=== PATIENT | male | born 1985 | race African-American/Black ===

== ENCOUNTER 2023-01-13 23:26 | Emergency (ER) | payer OTHER ==
[~2023-01-13] VITALS: Ht 198.1 cm; Wt 124.7 kg
[2023-01-13 23:43] VITALS: BP_SYST 152; PULSE 78; RESP 20; TEMP 98.3; O2SAT 99
--- NOTE | 2023-01-13 23:50 | NUR ---
Patient triaged and placed in waiting room. VSS and patient appears in no acute distress at this time. Accompanied by FRIEND, awaiting available bed, and MD notified of need for MSE.
--- NOTE | 2023-01-13 23:51 | NUR ---
Patient to ER bed 8 to gown for evaluation. Side rails up. Report given to ZEINA MATUTE.
--- NOTE | 2023-01-14 00:07 | NUR ---
pt bib partner from home. c/o L side pain. Pt states urine frequancy but denies pain and burning upon urination. Pt states pain 2/10 at the moment. Pt states to drink heavy liqour but denies being an alcoholic. pt states to have drank heavy liqour on thursday. pt denies N/V/D. Pt seen walking with steady gait. Pt denies taking pain medication for pain. Pt AAOX4. VSS. Afebrile. Skin dry and intact. PERRLA. Pt speaking full complete sentences. Pt in bed with side rails up. Pt partner at bedside.
[2023-01-14 00:13] LABS: BASOPHILS % (AUTO) 0.6 % (0.0-2.0); EOSINOPHILS # (AUTO) 0.1 K/uL (0.0-0.4); EOSINOPHILS % (AUTO) 2.3 % (0.0-4.0); HEMATOCRIT 45.4 % (36-54); HEMOGLOBIN 15.3 g/dL (14.0-18.0); LYMPHOCYTES # (AUTO) 2.1 K/uL (1.0-5.5); LYMPHOCYTES % (AUTO) 41.5 % (20.5-51.5); MEAN CORPUSCULAR HEMOGLOBIN 32 pg (27-31); MEAN CORPUSCULAR HGB CONC 34 % (32-36); MEAN CORPUSCULAR VOLUME 93 fL (79.0-98.0); MONOCYTES # (AUTO) 0.5 K/uL (0.0-1.0); MONOCYTES % (AUTO) 9.8 % (1.7-9.3); NEUTROPHILS # (AUTO) 2.4 K/uL (1.8-7.7); NEUTROPHILS % (AUTO) 45.8 % (40.0-70.0); PLATELET COUNT (AUTO) 204 K/uL (130-430); RED BLOOD CELL COUNT(AUTO) 4.87 MIL/uL (4.2-6.2); RED CELL DISTRIBUTION WIDTH 13.3 % (9.0-15.0); WHITE BLOOD COUNT (AUTO) 5.2 K/uL (4.8-10.8)
[2023-01-14 00:14] LABS: BILIRUBIN,URINE NEGATIVE (NEGATIVE); BLOOD, URINE NEGATIVE (NEGATIVE); CLARITY/URINE CLEAR (CLEAR); COLOR,URINE YELLOW (YELLOW); GLUCOSE,URINE NEGATIVE (NEGATIVE); KETONES,URINE TRACE (NEGATIVE); LEUKOCYTE ESTERASE ,URINE NEGATIVE (NEGATIVE); NITRITE, URINE NEGATIVE (NEGATIVE); PROTEIN URINE NEGATIVE (NEGATIVE); UROBILINOGEN,URINE 0.2 (0.2-1.0)
[2023-01-14 00:28] LABS: CALCIUM 8.9 mg/dL (8.4-11.0); CREATININE 1.17 mg/dL (0.55-1.30)
[2023-01-14 00:33] LABS: ALBUMIN 3.8 g/dL (3.4-4.8); TOTAL BILIRUBIN 0.3 mg/dL (0.0-1.0)
[2023-01-14] MEDS ORDERED: KETOROLAC TROMETHAMINE 30 MG VIAL IVP ONE (00:45)
[2023-01-14] MEDS ORDERED: NACL 0.9% 1,000 ML IV ONE (00:45)
--- NOTE | 2023-01-14 02:20 | NUR ---
pt in bed with at bedside. pt verbalizing understanding about waiting for radiology report. pt in bed with siderails up.
--- NOTE | 2023-01-14 04:50 | NUR ---
pt asking if AMA is option. explained to pt about AMA and needed to be treated for this reaccuring problem. Pt agreed and will wait for results. Pt in bed with at bedside
[2023-01-14] MEDS ORDERED: TRAM50TA2 PO (06:00)
[2023-01-14] MEDS ORDERED: DICY10CA13 PO (06:42)
[2023-01-14 06:49] VITALS: BP_SYST 152; PULSE 78; RESP 20; TEMP 98.3; O2SAT 99
--- NOTE | 2023-01-14 06:50 | NUR ---
Patient given written and verbal discharge instructions and verbalizes understanding. ER MD discussed with patient the results and treatment provided. Patient in stable condition. ID arm band removed. Rx of DICYCLOMINE AND TRAMADOL given. Patient educated on pain management and to follow up with PMD. Opportunity for questions provided and answered. Medication side effect fact sheet provided.
== END 2023-01-14 06:50 | disposition home or self-care (01) ==
LOC: SED 23:26
DX: R10.12 Left upper quadrant pain (principal); Z91.013 Allergy to seafood; Z79.899 Other long term (current) drug therapy
CPT/HCPCS: 99285; 80053; 83690; 85025; 36415; 81003; 74176; 96374; 96361; 76376; J1885; J7030